=== PATIENT | female | born 1980 | race Caucasian/White ===

== ENCOUNTER 2017-03-19 08:30 | Emergency (ER) | payer OTHER ==
[2017-03-19 08:47] VITALS: BP 115/76; PULSE 69; RESP 16; TEMP 98.2; O2SAT 98
[2017-03-19] MEDS ORDERED: IBUPROFEN 600 MG TAB PO ONE (08:52)
--- NOTE | 2017-03-19 09:05 | EDPHY ---
H & P Time Seen by Provider: 03/19/17 08:53 HPI/ROS: CHIEF COMPLAINT: Bilateral ear pain HISTORY OF PRESENT ILLNESS: The patient is a 36-year-old female who presents to the emergency department complaining of bilateral ear pain. She states that she has a history of systemic Ellen it is unable to tolerate antibiotics. 2 days ago she had increased sinus pressure and discomfort. She thought she may be getting sick. Yesterday she awoke with decreased hearing in mild pain in her left ear. This slowly improved. Last night she developed severe right ear pain. This was worse when she laid down. She also has mildly decreased hearing in the right ear. No fevers or chills. No cough. No current sore throat. REVIEW OF SYSTEMS: My complete review of systems is negative except as mentioned in the HPI. Past Medical/Surgical History: Reported systemic Ellen Past surgical history: Negative Social history: The patient does not smoke Smoking Status: Never smoked Physical Exam: Vitals noted. 115/76, 69, 16, 36.8, 98% GENERAL: Well-appearing, in no acute distress, alert. HEENT: Eyes normal to inspection, normal pharynx, no signs of dehydration. Patient has contracted mildly erythematous TMs bilaterally. No fluid collection. No perforation. No external canal erythema. No discomfort with movement of ears. NECK: No thyromegaly, no lymphadenopathy, supple. RESPIRATORY: Clear to auscultation bilaterally, no rales, rhonchi or wheezing. CVS: Regular rate and rhythm, no rubs, murmurs, or gallops. ABDOMEN: Soft, nontender, nondistended, no organomegaly. BACK: Normal SKIN: Normal color, no rash, warm, dry. No pallor. EXTREMITIES: No pedal edema, no joint swelling. NEURO/PSYCH: Alert and oriented, normal mood and affect, normal motor sensory exam. No obvious cranial nerve deficit. Constitutional: Initial Vital Signs Temperature (C) 36.8 C 03/19/17 08:44 Heart Rate 69 03/19/17 08:44 Respiratory Rate 16 03/19/17 08:44 Blood Pressure 115/76 03/19/17 08:44 O2 Sat (%) 98 03/19/17 08:44 O2 Delivery Mode Room Air Allergies/Adverse Reactions: corn Allergy (Verified 03/19/17 08:48) Home Medications: Medication Instructions Recorded Hydrocodone/APAP 5/325 [[place] 1 - 2 tab PO Q4 #7 tab 03/19/17 5/325 (RX)] Numerous Supplements. 03/19/17 Medical Decision Making ED Course/Re-evaluation: In the emergency department I discussed possible etiologies with the patient. I answered all her questions. I discussed etiologies of infection including viral illness and bacterial illness. The patient is adamant that she cannot tolerate any antibiotics. She does not want to take antibiotics for her current ear infection. I discussed that she will need close follow-up to ensure symptoms are resolving. Differential Diagnosis: The patient presents with bilateral ear discomfort. She does have mild redness on exam. Based on statistics this is most likely a viral illness. However, I cannot fully rule out a bacterial infection. I discussed this with the patient. She understands the risks and benefits of taking antibiotics. I had a thorough discussion regarding her options. Patient does not appear septic or toxic. I have considered sinusitis, viral illness, perforation - Data Points Medications Given: Discontinued Medications Ibuprofen (Motrin) 600 mg PO EDNOW ONE Stop: 03/19/17 08:53 Last Admin: 03/19/17 08:56 Dose: 600 mg Departure - Departure Disposition: Home, Routine, Self-Care Clinical Impression: Otitis media Qualifiers: Otitis media type: unspecified nonsuppurative Laterality: bilateral Qualified Code(s): H65.93 - Unspecified nonsuppurative otitis media, bilateral Condition: Good Instructions: Otitis Media (ED) Additional Instructions: Return with increasing pain, hearing loss, fever, chills or any other concerns. Take ibuprofen and pain medication for your symptoms. Referrals: Suzan Castanon MD [Medical Doctor] - 5-7 days, if not improved Prescriptions: Hydrocodone/APAP 5/325 [[place] 5/325 (RX)] 1 - 2 tab PO Q4 #7 tab
[2017-03-19] MEDS ORDERED: IBUPROFEN 200 MG TAB PO ONE (09:06)
== END 2017-03-19 09:23 | disposition home or self-care (01) ==
LOC: CED 08:30
DX: H65.93 Unspecified nonsuppurative otitis media, bilateral (principal)